=== PATIENT | male | born 1970 | race Caucasian/White ===

== ENCOUNTER 2022-02-02 14:22 | Inpatient (IN) | payer BC ==
[~2022-02-02] VITALS: Ht 172.7 cm; Wt 71.7 kg
--- NOTE | 2022-02-02 14:40 | NUR ---
PATIENT ARRIVED TO UNIT FROM ED VIA W/C. AMBULATED INDEPENDENTLY IN ROOM TO BED. VSS ON RA, DENIES PAIN TO THE ABD AT THIS TIME, HYPOACTIVE BT. DENIES N/V, NO PO INTAKE. ORIENTED TO ROOM & CALL LIGHT.
[2022-02-02] MEDS ORDERED: ONE DAILY TABL1 EAC1 PO (14:56)
[2022-02-02] MEDS ORDERED: TOCO1000 PO (14:56)
[2022-02-02] MEDS ORDERED: VITAMIN D31000 UNI1 PO (14:57)
[2022-02-02] MEDS ORDERED: MULTI-VITAMIN1 EAC2 PO (14:58)
--- NOTE | 2022-02-02 18:23 | NUR ---
SHIFT SUMMARY MILD TEMP OF 100.4, WILL RECHECK WITHIN HOUR. NO OTHER ACUTE CHANGES SINCE ARRIVAL TO UNIT. TOLERATING PO INTAKE, DENIES N/V. REPORTS PAIN TO BE TOLERABLE AT REST, DENIES NEED FOR PAIN MEDICATION.
[2022-02-03 03:52] LABS: BASOPHILS ABSOLUTE AUTO 0.06 K/mm3 (0.00-0.23); BASOPHILS PERCENT AUTO 0 % (0-2); EOSINOPHILS PERCENT AUTO 0 % (0-6); Hemoglobin 12.1 g/dL (13.5-17.5); IMMATURE GRAN ABSOLUTE AUTO 0.08 K/mm3 (0.00-0.10); IMMATURE GRAN PERCENT AUTO 1 % (0-1); LYMPHOCYTES ABSOLUTE AUTO 1.61 K/mm3 (0.84-5.20); LYMPHOCYTES PERCENT AUTO 11 % (21-46); MONOCYTES PERCENT AUTO 11 % (4-13); Mean Corpuscular HGB 28.9 pg (26.0-34.0); Mean Corpuscular HGB Conc 33.6 g/dL (31.5-36.5); Mean Corpuscular Volume 86 fL (80-100); Mean Platelet Volume 8.8 fL (9.1-12.4); NEUTROPHILS ABSOLUTE AUTO 11.79 K/mm3 (1.96-9.15); NEUTROPHILS PERCENT AUTO 78 % (41-73); Platelet Count 263 K/mm3 (150-400); RDW Standard Deviation 40.5 fL (35.1-46.3); Red Blood Cell Count 4.19 M/mm3 (4.30-5.90); White Blood Cell Count 15.14 K/mm3 (4.00-11.30)
--- NOTE | 2022-02-03 03:59 | NUR ---
PT IS A&OX4, VSS AND IS ABLE TO MAKE NEEDS KNOWN. HAS BEEN NPO SINCE MIDNIGHT FOR AN APPENDECTOMY D/T APPENDICITIS. RECEIVING SCHEDULED IV ABX AND NS AT 150ML/HR. PAIN CONTROLLED WITH PRN FENTANYL. PT IS ABLE TO AMBULATE TO WITHOUT ASSISTANCE, IS INDEPENDENT IN ROOM AND CALLS APPROPRIATELY. WILL CONTINUE TO MONITOR THIS PT.
[2022-02-03 04:11] LABS: Alanine Aminotransfer (ALT/SGP 35 U/L (12-78); Albumin, Blood 2.5 g/dL (3.4-5.0); Albumin/Globulin Ratio 0.6 (0.8-1.8); Alk Phos 118 U/L (50-136); Anion Gap 9 mmol/L (6-16); Aspartate Aminotrans (AST/SGOT 21 U/L (12-37); Bilirubin, Total 1.2 mg/dL (0.1-1.0); Blood Urea Nitrogen 9 mg/dL (8-24); Bun/Creatinine Ratio 9.7 (12.0-20.0); CO2, Blood 24 mmol/L (21-32); Calcium, Blood 8.2 mg/dL (8.5-10.1); Chloride, Blood 108 mmol/L (98-108); Creatinine, Blood 0.93 mg/dL (0.60-1.20); Globulin, Blood 4.1 g/dL (2.2-4.0); Glomerular Filtration Rate >60 (60-); Glucose, Blood 111 mg/dL (70-99); Magnesium, Blood 1.8 mg/dL (1.6-2.4); Potassium, Blood 3.5 mmol/L (3.5-5.5); Sodium, Blood 141 mmol/L (136-145); Total Protein, Blood 6.6 g/dL (6.4-8.2)
[2022-02-03 04:40] LABS: Influenza A, PCR NEGATIVE (NEGATIVE); Influenza B, PCR NEGATIVE (NEGATIVE); Resp Syncytial Virus, PCR NEGATIVE (NEGATIVE); SARS-Cov-2 (COVID-19) PCR, MMC NEGATIVE (NEGATIVE)
--- NOTE | 2022-02-03 17:53 | NUR ---
SHIFT SUMMARY VSS ON RA, PATIENT IND IN ROOM TO BR. TOLERATING PO INTAKE WELL ALTHOUGH POOR APPETITE D/T INT NAUSEA, NO VOMITING. PAIN TO RLQ OF ABDOMEN, INCREASES W/ ACTIVITY. NAUSEA & PAIN MANAGED PER EMAR. VOIDING WELL, DENIES FLATUS & BM. PLAN TO CONTINUE IV ABX UNTIL WBC BECOMES WNL & DISCHARGE HOME ON ORAL ABX. WILL REPORT TO ONCOMING RN.
[2022-02-04 04:44] LABS: BASOPHILS ABSOLUTE AUTO 0.08 K/mm3 (0.00-0.23); BASOPHILS PERCENT AUTO 0 % (0-2); EOSINOPHILS ABSOLUTE AUTO 0.03 K/mm3 (0.00-0.68); EOSINOPHILS PERCENT AUTO 0 % (0-6); Hematocrit 38.1 % (37.0-53.0); Hemoglobin 12.8 g/dL (13.5-17.5); IMMATURE GRAN ABSOLUTE AUTO 0.08 K/mm3 (0.00-0.10); IMMATURE GRAN PERCENT AUTO 0 % (0-1); LYMPHOCYTES PERCENT AUTO 10 % (21-46); MONOCYTES ABSOLUTE AUTO 1.27 K/mm3 (0.16-1.47); MONOCYTES PERCENT AUTO 7 % (4-13); Mean Corpuscular HGB 28.8 pg (26.0-34.0); Mean Corpuscular HGB Conc 33.6 g/dL (31.5-36.5); Mean Corpuscular Volume 86 fL (80-100); Mean Platelet Volume 8.7 fL (9.1-12.4); NEUTROPHILS ABSOLUTE AUTO 15.23 K/mm3 (1.96-9.15); NEUTROPHILS PERCENT AUTO 82 % (41-73); Platelet Count 295 K/mm3 (150-400); RDW Coefficient Variation 12.9 % (11.7-14.2); RDW Standard Deviation 40.5 fL (35.1-46.3); Red Blood Cell Count 4.44 M/mm3 (4.30-5.90); White Blood Cell Count 18.59 K/mm3 (4.00-11.30)
--- NOTE | 2022-02-04 06:31 | NUR ---
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
--- NOTE | 2022-02-04 08:03 | NUR ---
A&OX4, EATING BREAKFAST, PT STATES HE IS ONLY EATING SMALL AMOUNTS, MEDICATED FOR PAIN BY JULIO MERINO, DENIES ANY NAUSEA, AMBULATING WITHOUT DIFFICULTY, CONT. TO MONITOR FOR ANY CHANGES.
--- NOTE | 2022-02-04 18:22 | NUR ---
SUMMARY PT CONT. TO HAVE 4/10 PAIN ON R ABD, DENIES ANY NAUSEA, AMBULATING TO THE BATHROOM WITHOUT DIFFICULTY, TOLERATING A FEW BITES OF FOOD, PT STATES HE IS "AFRAID TO EAT TOO MUCH" FOR FEAR OF INCREASED ABD PAIN, CT ABD NOTED ORDERED FOR TOMORROW AM, PT NOTIFIED, NO ACUTE CHANGES THIS SHIFT.
[2022-02-05 06:58] LABS: BASOPHILS PERCENT AUTO 1 % (0-2); EOSINOPHILS ABSOLUTE AUTO 0.07 K/mm3 (0.00-0.68); EOSINOPHILS PERCENT AUTO 0 % (0-6); Hematocrit 39.7 % (37.0-53.0); Hemoglobin 13.3 g/dL (13.5-17.5); IMMATURE GRAN ABSOLUTE AUTO 0.07 K/mm3 (0.00-0.10); IMMATURE GRAN PERCENT AUTO 0 % (0-1); LYMPHOCYTES ABSOLUTE AUTO 1.64 K/mm3 (0.84-5.20); LYMPHOCYTES PERCENT AUTO 9 % (21-46); MONOCYTES PERCENT AUTO 7 % (4-13); Mean Corpuscular HGB 28.9 pg (26.0-34.0); Mean Corpuscular HGB Conc 33.5 g/dL (31.5-36.5); Mean Corpuscular Volume 86 fL (80-100); Mean Platelet Volume 8.7 fL (9.1-12.4); NEUTROPHILS ABSOLUTE AUTO 14.42 K/mm3 (1.96-9.15); NEUTROPHILS PERCENT AUTO 82 % (41-73); Platelet Count 312 K/mm3 (150-400); RDW Coefficient Variation 12.9 % (11.7-14.2); RDW Standard Deviation 40.9 fL (35.1-46.3); Red Blood Cell Count 4.61 M/mm3 (4.30-5.90)
[2022-02-05 07:15] LABS: Anion Gap 6 mmol/L (6-16); Blood Urea Nitrogen 11 mg/dL (8-24); Bun/Creatinine Ratio 16.3 (12.0-20.0); CO2, Blood 26 mmol/L (21-32); Calcium, Blood 8.9 mg/dL (8.5-10.1); Chloride, Blood 106 mmol/L (98-108); Creatinine, Blood 0.67 mg/dL (0.60-1.20); Glomerular Filtration Rate >60 (60-); Glucose, Blood 77 mg/dL (70-99); Potassium, Blood 3.5 mmol/L (3.5-5.5); Sodium, Blood 138 mmol/L (136-145)
--- NOTE | 2022-02-05 07:51 | NUR ---
SUMMARY PT REPORTS MINIMAL DISCOMFORT THIS SHIFT.MED X [address] SCAN F/U TODAY. WBC IMPROVING THIS AM.
--- NOTE | 2022-02-05 16:19 | NUR ---
PT ENCOURAGED OOB TO AMBULATE, PT REFUSED AT THIS TIME, STATES HE IS AMBULATING IN ROOM.
--- NOTE | 2022-02-05 18:28 | NUR ---
SUMMARY DENIED ANY NEED FOR PAIN MEDS T/O SHIFT, DENIES ANY NAUSEA, INDEPENDENT IN ROOM, CONT. WITH IV ABX, NO ACUTE CHANGES THIS SHIFT.
[2022-02-06 06:32] LABS: International Normalized Ratio 1.12; Prothrombin Time Results 11.7 Sec (9.7-11.5)
--- NOTE | 2022-02-06 06:42 | NUR ---
PT VSS T/O NIGHT. PT DENIED ABD PAIN/N/V. ABD REMIANS DISTENDED, PT REP +FLATUS. PT NPO POST MIDNIGHT FOR PLANNED CT GUIDED DRAIN. IV ABX CONT PER ORDERS.
[2022-02-06 11:13] LABS: Automated BF RBC Count 0.022 M/mm3 (0-0); RBC Count, Body Fluid 22000 /mm3 (0-0)
[2022-02-06 11:28] LABS: Appearance, Body Fluid Turbid (Clear); Automated BF WBC Count >200.000 K/mm3 (0-999); Body Fluid WBC Count 200001 /mm3 (0-999)
[2022-02-06 11:58] LABS: Total Cell Count, Body Fluid 100
--- NOTE | 2022-02-06 18:26 | NUR ---
SHIFT SUMMARY PT HAD CT GUIDED DRAIN PLACEMENT THIS AM w/ SCANT DRNG. SINCE, HAS FELT UNWELL; INCREASE IN PAIN LOCALIZED TO RLQ, NAUSEA W/ NO EMESIS, & GENERAL UNWELL FEELING HE CAN'T DESCRIBE. HAS HAD A DECREASE IN APPETITE BUT IS TAKING IN FLUIDS WELL & SNACKING ON JELLO.
[2022-02-07 04:24] LABS: BASOPHILS ABSOLUTE AUTO 0.09 K/mm3 (0.00-0.23); BASOPHILS PERCENT AUTO 1 % (0-2); EOSINOPHILS ABSOLUTE AUTO 0.07 K/mm3 (0.00-0.68); EOSINOPHILS PERCENT AUTO 1 % (0-6); Hematocrit 43.3 % (37.0-53.0); Hemoglobin 14.8 g/dL (13.5-17.5); IMMATURE GRAN ABSOLUTE AUTO 0.06 K/mm3 (0.00-0.10); IMMATURE GRAN PERCENT AUTO 0 % (0-1); LYMPHOCYTES ABSOLUTE AUTO 1.73 K/mm3 (0.84-5.20); LYMPHOCYTES PERCENT AUTO 12 % (21-46); MONOCYTES ABSOLUTE AUTO 0.99 K/mm3 (0.16-1.47); MONOCYTES PERCENT AUTO 7 % (4-13); Mean Corpuscular HGB 29.1 pg (26.0-34.0); Mean Corpuscular HGB Conc 34.2 g/dL (31.5-36.5); Mean Corpuscular Volume 85 fL (80-100); Mean Platelet Volume 8.3 fL (9.1-12.4); NEUTROPHILS ABSOLUTE AUTO 11.58 K/mm3 (1.96-9.15); NEUTROPHILS PERCENT AUTO 80 % (41-73); Platelet Count 365 K/mm3 (150-400); RDW Coefficient Variation 12.8 % (11.7-14.2); Red Blood Cell Count 5.08 M/mm3 (4.30-5.90); White Blood Cell Count 14.52 K/mm3 (4.00-11.30)
--- NOTE | 2022-02-07 04:25 | NUR ---
PT IS A&OX4, INDEPENDENT WITH CARES AND IS ABLE TO MAKE NEEDS KNOWN. HAD CT GUIDED DRAIN PLACEMENT ON 02/06, DRAIN IS PRODUCING SCANT OUTPUT. HAS PRN FENTANYL FOR PAIN AND ZOFRAN FOR NAUSEA RECEIVED BOTH THIS SHIFT WITH GOOD RESULTS. ON SCHEDULED ABX FOR ACUTE APPENDICITIS. RESTS THROUGH THE NIGHT. WILL CONTINUE TO MONITOR.
[2022-02-07 04:47] LABS: Anion Gap 13 mmol/L (6-16); Blood Urea Nitrogen 11 mg/dL (8-24); CO2, Blood 21 mmol/L (21-32); Calcium, Blood 9.2 mg/dL (8.5-10.1); Chloride, Blood 105 mmol/L (98-108); Creatinine, Blood 0.73 mg/dL (0.60-1.20); Glomerular Filtration Rate >60 (60-); Glucose, Blood 73 mg/dL (70-99); Potassium, Blood 3.9 mmol/L (3.5-5.5); Sodium, Blood 139 mmol/L (136-145)
--- NOTE | 2022-02-07 17:47 | NUR ---
SHIFT SUMMARY PT HAS BEEN UPBEAT & CHEERFUL TODAY. UP IND IN ROOM. DRAIN HAS SMALL AMOUNT; TO THIS POINT NOT ENOUGH TO DRAIN FROM BAG. BLOODY/MILKY. HAS DECLINED PAIN MEDS; REPORTS PAIN A "TWINGE HERE & THERE" NO NAUSEA TODAY. PT HOPEFUL FOR IMPROVED LABS TOMORROW & DC.
--- NOTE | 2022-02-08 03:50 | NUR ---
SHIFT SUMMARY NO ACUTE CHANGES TO REPORT THIS SHIFT, PT HAS RESTED MOST OF THE NIGHT. DRAIN IN PLACE TO ROQ WITH VERY MINIMAL OUTPUT, UNCHANGED FROM DAYSHIFT REPORT. PT DENIES PAIN. APPETITE IS GOOD, DENIES N/V. BM YESTERDAY. IV ANTIBIOTICS CONTINUED ORDERED. POSSIBLE DC TODAY DEPENDING ON AM LAB RESULTS. BED IN LOWEST POSITION, CALL LIGHT WITHIIN REACH.
[2022-02-08 05:33] LABS: BASOPHILS ABSOLUTE AUTO 0.12 K/mm3 (0.00-0.23); BASOPHILS PERCENT AUTO 1 % (0-2); EOSINOPHILS PERCENT AUTO 2 % (0-6); Hematocrit 43.3 % (37.0-53.0); Hemoglobin 14.8 g/dL (13.5-17.5); IMMATURE GRAN ABSOLUTE AUTO 0.07 K/mm3 (0.00-0.10); IMMATURE GRAN PERCENT AUTO 1 % (0-1); LYMPHOCYTES ABSOLUTE AUTO 1.44 K/mm3 (0.84-5.20); LYMPHOCYTES PERCENT AUTO 14 % (21-46); MONOCYTES ABSOLUTE AUTO 0.91 K/mm3 (0.16-1.47); MONOCYTES PERCENT AUTO 9 % (4-13); Mean Corpuscular HGB 28.8 pg (26.0-34.0); Mean Corpuscular HGB Conc 34.2 g/dL (31.5-36.5); Mean Corpuscular Volume 84 fL (80-100); Mean Platelet Volume 8.6 fL (9.1-12.4); NEUTROPHILS ABSOLUTE AUTO 7.73 K/mm3 (1.96-9.15); NEUTROPHILS PERCENT AUTO 74 % (41-73); Platelet Count 393 K/mm3 (150-400); RDW Coefficient Variation 12.9 % (11.7-14.2); RDW Standard Deviation 39.7 fL (35.1-46.3); Red Blood Cell Count 5.14 M/mm3 (4.30-5.90); White Blood Cell Count 10.47 K/mm3 (4.00-11.30)
[2022-02-08] MEDS ORDERED: AMOCLA875 PO (14:18)
--- NOTE | 2022-02-08 15:11 | NUR ---
DISCHARGE ESCORTED OUT VIA W/C. EATING, DRINKING, VOIDING, & HAVING REG BM's. MINIMAL PAIN. DRAIN REMOVED BY DR GALEANA DURING ROUNDS. ABX CALLED TO [facility] DELGADILLO PER PT REQUEST BUT HARD SCRIPT GIVEN TO PT WELL.
== END 2022-02-08 15:15 | disposition home or self-care (01) | DRG 871 ==
LOC: ER 14:22 → ICUW 15:42 → SURS 15:42 → ER 16:29 → SURS 16:50
PROVIDERS: Internal Medicine; Nurse Practitioner Acute Care; Surgery; ADMIT Internal Medicine
PROC: 3E03329 Introduction of Other Anti-infective into Peripheral Vein, Percutaneous Approach (ICD-10-PCS; 2022-02-02)
PROC: 0D9J30Z Drainage of Appendix with Drainage Device, Percutaneous Approach (ICD-10-PCS; principal; 2022-02-06)
DX: A41.9 Sepsis, unspecified organism (principal); K35.33 Acute appendicitis with perforation, localized peritonitis, and gangrene, with abscess; I10 Essential (primary) hypertension; F41.9 Anxiety disorder, unspecified; Z20.822 Contact with and (suspected) exposure to COVID-19; Z28.21 Immunization not carried out because of patient refusal
CPT/HCPCS: 0241U; 36415; 49405; 74177; 80048; 80053; 82150; 83605; 83735; 85025; 85610; 85730; 87040; 87070; 87075; 87076; 87077; 87185; 87186; 87205; 89051; 96365; 99285-25; A9270; J0692; J2405; J2543; J3010; J7030; J7050; Q9967

== ENCOUNTER → 2022-02-02 | Outpatient (CLI) | payer BC ==
[~2022-02-02] MED LIST: MULTI-VITAMIN1 EAC2 PO; ONE DAILY TABL1 EAC1 PO; TOCO1000 PO; VITAMIN D31000 UNI1 PO
[2022-02-02 09:47] LABS: BASOPHILS ABSOLUTE AUTO 0.08 K/mm3 (0.00-0.23); BASOPHILS PERCENT AUTO 1 % (0-2); EOSINOPHILS ABSOLUTE AUTO 0.03 K/mm3 (0.00-0.68); EOSINOPHILS PERCENT AUTO 0 % (0-6); Hematocrit 45.2 % (37.0-53.0); Hemoglobin 15.2 g/dL (13.5-17.5); IMMATURE GRAN ABSOLUTE AUTO 0.04 K/mm3 (0.00-0.10); IMMATURE GRAN PERCENT AUTO 0 % (0-1); LYMPHOCYTES ABSOLUTE AUTO 1.49 K/mm3 (0.84-5.20); LYMPHOCYTES PERCENT AUTO 12 % (21-46); MONOCYTES PERCENT AUTO 7 % (4-13); Mean Corpuscular HGB Conc 33.6 g/dL (31.5-36.5); Mean Corpuscular Volume 86 fL (80-100); Mean Platelet Volume 8.4 fL (9.1-12.4); NEUTROPHILS ABSOLUTE AUTO 9.58 K/mm3 (1.96-9.15); NEUTROPHILS PERCENT AUTO 79 % (41-73); Platelet Count 313 K/mm3 (150-400); RDW Coefficient Variation 13.2 % (11.7-14.2); RDW Standard Deviation 40.9 fL (35.1-46.3); Red Blood Cell Count 5.24 M/mm3 (4.30-5.90); White Blood Cell Count 12.12 K/mm3 (4.00-11.30)
[2022-02-02 09:59] LABS: Alanine Aminotransfer (ALT/SGP 64 U/L (12-78); Albumin, Blood 3.5 g/dL (3.4-5.0); Albumin/Globulin Ratio 0.7 (0.8-1.8); Alk Phos 167 U/L (40-126); Anion Gap 10 mmol/L (6-16); Aspartate Aminotrans (AST/SGOT 42 U/L (12-37); Bilirubin, Total 0.7 mg/dL (0.1-1.0); Blood Urea Nitrogen 9 mg/dL (8-24); Bun/Creatinine Ratio 9.7 (12.0-20.0); CO2, Blood 31 mmol/L (21-32); Calcium, Blood 9.4 mg/dL (8.5-10.1); Chloride, Blood 100 mmol/L (98-108); Creatinine, Blood 0.93 mg/dL (0.60-1.20); Globulin, Blood 5.2 g/dL (2.2-4.0); Glomerular Filtration Rate >60 (60-); Glucose, Blood 90 mg/dL (70-99); Potassium, Blood 3.8 mmol/L (3.5-5.5); Sodium, Blood 141 mmol/L (136-145); Total Protein, Blood 8.7 g/dL (6.4-8.2)
== END | disposition home or self-care (01) ==
LOC: LAB SHORT 09:38
PROVIDERS: General Practice
DX: R10.84 Generalized abdominal pain (principal)
CPT/HCPCS: 80053; 82150; 85025

== ENCOUNTER 2022-04-18 10:19 | Day surgery (SDC) | payer BC ==
[~2022-04-18] VITALS: Ht 172.7 cm; Wt 74.0 kg
[~2022-04-18 10:19] MED LIST changes: +AMOCLA875 PO
[2022-04-18] MEDS ORDERED: ASCORBIC ACID500 MG PO (15:22)
== END 2022-04-18 12:44 | disposition home or self-care (01) ==
LOC: ORSCSDS 10:19
PROVIDERS: Surgery
PROC: 0DJD8ZZ Inspection of Lower Intestinal Tract, Via Natural or Artificial Opening Endoscopic (ICD-10-PCS; principal; 2022-04-18 11:30)
DX: Z12.11 Encounter for screening for malignant neoplasm of colon (principal); E78.5 Hyperlipidemia, unspecified; I10 Essential (primary) hypertension
CPT/HCPCS: J2704; J7120